=== PATIENT | female | born 1965 | race Caucasian/White ===

== ENCOUNTER 2020-08-31 10:31 | Emergency (ER) | payer OTHER, SELFPAY ==
[2020-08-31] MEDS ORDERED: Fentanyl 100 MCG/2 ML VIAL ONE (11:59)
[2020-08-31] MEDS ORDERED: Ketorolac Tromethamine 15 MG/ML VIAL ONE (11:59)
[2020-08-31] MEDS ORDERED: HYDROcodone/Acetaminophen 10/325 mg Tablet ONE (11:59)
== END 2020-08-31 13:04 | disposition home or self-care (01) ==
LOC: CSHERS 10:31
DX: M54.41 Lumbago with sciatica, right side (principal); J45.909 Unspecified asthma, uncomplicated; M47.816 Spondylosis without myelopathy or radiculopathy, lumbar region; Z79.51 Long term (current) use of inhaled steroids; Z79.899 Other long term (current) drug therapy
CPT/HCPCS: 96374; 96375; J1885; J3010